=== PATIENT | female | born 1945 | race Caucasian/White ===

== ENCOUNTER → 2017-11-23 20:42 | Outpatient (CLI) | payer MEDICARE | END | disposition home or self-care (01) | LOC: D.MAMMO 08:30 | DX: Z12.31 Encounter for screening mammogram for malignant neoplasm of breast (principal) ==

== ENCOUNTER 2018-08-06 12:00 | Outpatient (CLI) | payer OTHER, MEDICARE | END 2018-08-06 13:00 | disposition home or self-care (01) | LOC: D.MAMMO 12:00 | PROVIDERS: ATTEND Internal Medicine Medical Oncology | DX: Z12.31 Encounter for screening mammogram for malignant neoplasm of breast (principal) ==